=== PATIENT | male | born 1965 | race Hispanic/Latino ===

== ENCOUNTER 2017-10-04 13:25 | Outpatient (CLI) | payer OTHER | END 2017-10-04 13:26 | disposition home or self-care (01) | LOC: BICULT 13:25 | PROVIDERS: ATTEND Urology | DX: N39.0 Urinary tract infection, site not specified (principal); N28.1 Cyst of kidney, acquired | CPT/HCPCS: 76770 ==

== ENCOUNTER 2018-02-14 18:31 | Emergency (ER) | payer SELFPAY ==
--- NOTE | 2018-02-14 19:50 | RAD ---
RIGHT LOWER LEG TWO VIEWS: 02/14/18 HISTORY: Right leg injury. FINDINGS: Tibia and fibula are intact. Degenerative changes of the knee and ankle. Phleboliths within the soft tissues. No acute fracture or dislocation. IMPRESSION: No acute osseous abnormalities are demonstrated. POS: [facility]A
[2018-02-14] MEDS ORDERED: HYDROcodone/Acetaminophen 10/325 mg Tablet ONE (20:15)
[2018-02-14 20:29] LABS: #Basophils 0.1 thou/uL (0.0-0.2); #Eosinphils 0.2 thou/uL (0.0-0.7); #Lymphocytes 2.1 thou/uL (1.20-3.40); #Monocytes 0.5 thou/uL (0.11-0.59); #Neutrophils 4.4 thou/uL (1.40-6.50); %Basophils 1.1 % (0.0-1.0); %Eosinophils 2.5 % (0.0-10.0); %Lymphocytes 28.4 % (21.0-51.0); %Monocytes 7.3 % (0.0-10.0); %Neutrophils 60.7 % (42.0-75.0); Hemoglobin 14.9 g/dL (14.0-18.0); Mean Corpuscular HGB CONC 34.7 g/dL (32.0-36.0); Mean Corpuscular Hemoglobin 33.1 pg (27.0-31.0); Mean Corpuscular Volume 95.3 fL (78.0-98.0); Mean Platelet Volume 8.4 fL (7.4-10.4); Platelet Count 150 thou/uL (130-400); RBC Distribution Width 11.9 % (11.5-14.5); White Blood Cell (WBC) Count 7.3 thou/uL (4.8-10.8)
[2018-02-14 20:49] LABS: ALT (SGPT) 81 U/L (8-55); AST (SGOT) 70 U/L (5-34); Alkaline Phosphatase 140 U/L (40-150); Anion Gap 15 mmol/L (10-20); BUN (Urea Nitrogen) 12 mg/dL (8.4-25.7); Bilirubin, Total 1.2 mg/dL (0.2-1.2); Calc. Creatinine Clearance 0 mL/min (70-130); Calcium 9.6 mg/dL (7.8-10.44); Carbon Dioxide 21 mmol/L (22-29); Chloride 102 mmol/L (98-107); Estimated GFR-MDRD Greater than 90; Globulin 4.1 g/dL (2.4-3.5); Glucose 356 mg/dL (70-105); Magnesium 2.1 mg/dL (1.6-2.6); Potassium 3.9 mmol/L (3.5-5.1); Protein, Total 8.1 g/dL (6.0-8.3); Sodium 134 mmol/L (136-145)
--- NOTE | 2018-02-14 20:58 | ULT ---
VENOUS DUPLEX SONOGRAM RIGHT LOWER EXTREMITY 02/14/18 HISTORY: Right leg pain and edema. FINDINGS: The right common femoral vein and greater saphenous junction were evaluated along with the femoral, d eep femoral, popliteal, and posterior tibial veins. There is good color and spectral doppler flow, co mpression, and augmentation. In region of swelling, a subcutaneous lobular fluid collection measures up to 8.0 cm length x 2.5 cm depth. IMPRESSION: No sonographic evidence of DVT right lower extremity. Fluid collection in the region of injury likely represents a subcutaneous hematoma. POS: RULA
[2018-02-14 21:28] LABS: Bilirubin Negative (Negative); Blood, Urine Negative (Negative); Clarity CLEAR (Clear); Glucose, Urine (Dipstick) >=1000 mg/dL (Negative); Leukocyte Negative (Negative); Nitrite Negative (Negative); Protein, Urine (Dipstick) Negative (Neg-Trace); Specific Gravity, Urine 1.033 (1.002-1.036); pH, Urine 6.5 (5.0-9.0)
== END 2018-02-14 22:50 | disposition home or self-care (01) ==
LOC: ERS 18:31
DX: S80.11XA Contusion of right lower leg, initial encounter (principal); L03.115 Cellulitis of right lower limb; I10 Essential (primary) hypertension; Z79.84 Long term (current) use of oral hypoglycemic drugs; Z79.899 Other long term (current) drug therapy; W17.89XA Other fall from one level to another, initial encounter
CPT/HCPCS: 36415; 80053; 81003; 83735; 85025; 85379

== ENCOUNTER 2023-06-25 16:02 | Emergency (ER) | payer SELFPAY ==
[2023-06-25] MEDS ORDERED: Rocuronium Bromide 10 MG/ML (10ML VIAL) ONE (16:16)
[2023-06-25] MEDS ORDERED: NOREPINEPHRINE 8 MG/250 ML-D5W 250 ML ONE (16:22)
[2023-06-25] MEDS ORDERED: Vasopressin 20 UNITS/ML VIAL ONE ×2 (16:22→16:24)
[2023-06-25] MEDS ORDERED: methylPREDNISolone Sod Succ/PF 125 MG/2 ML VIAL ONE (16:32)
[2023-06-25 16:45] LABS: Hematocrit 21.2 % (42.0-52.0); Hemoglobin 6.1 g/dL (14.0-18.0); Manual Diff?? YES; Mean Corpuscular HGB CONC 28.8 g/dL (32.0-36.0); Mean Corpuscular Volume 114.6 fl (78.0-98.0); Mean Platelet Volume 12.7 fL (7.4-10.4); RBC Distribution Width 19.3 % (11.5-14.5); Red Blood Cell (RBC) Count 1.85 mill/uL (4.70-6.10); White Blood Cell (WBC) Count 6.5 10x3/uL (4.8-10.8)
[2023-06-25 16:47] LABS: Delete Auto Diff?? YES; Platelet Count 32 10x3/uL (130-400)
[2023-06-25 16:49] LABS: Analyzer IN Cardio ER; Base Excess -23.2 mEq/L (-2.0 to +3.0); Calcium, Ionized (venous) 0.93 mmol/L (1.16-1.32); Chloride (VBG) 99 mmol/L (98-106); Hematocrit-VBG 21 % (42.0-52.0); Hemoglobin (Hb) 7.3 g/dL (13.1-17.2); Sodium 146 mmol/L (133-146)
[2023-06-25 17:00] LABS: pH (venous) 6.782 (7.32-7.43)
[2023-06-25 17:01] LABS: Actual Bicarbonate (HCO3v) 10.1 mEq/L (22-28)
[2023-06-25 17:12] LABS: ALT (SGPT) 56 U/L (8-55); AST (SGOT) 225 U/L (5-34); Acetaminophen Less than 10 mcg/mL (10.0-30.0); Albumin 1.5 g/dL (3.5-5.0); Alcohol 184.2 mg/dL (Less than 10); Alkaline Phosphatase 225 U/L (40-110); Anion Gap 44 mmol/L (10-20); BUN (Urea Nitrogen) 8 mg/dL (8.4-25.7); Bilirubin, Total 5.8 mg/dL (0.2-1.2); Calc. Creatinine Clearance 0 mL/min (70-130); Calcium 8.3 mg/dL (7.8-10.44); Carbon Dioxide 10 mmol/L (22-29); Chloride 100 mmol/L (98-107); Estimated GFR 54; Globulin 3.9 g/dL (2.4-3.5); Glucose 107 mg/dL (70-105); Potassium 5.1 mmol/L (3.5-5.1); Protein, Total 5.4 g/dL (6.0-8.3); Salicylate Less than 8.0 mg/dL (15.0-30.0); Sodium 149 mmol/L (136-145)
[2023-06-25 17:15] LABS: Anisocytosis SLIGHT = 6-15 cells HPF (0-5); Band 7 % (5-11); Burr Cells SLIGHT = 2-5 cells HPF (0-1); CellaVision Operator ID LAB.KB; Hypochromia SLIGHT = 6-15 cells HPF (0-5); Large Platelets 15.2 % (0-5); Lymphocytes 17 % (21-51); Macrocytosis SLIGHT = 6-15 cells HPF (0-5); Monocytes 5 % (0-10); Myelocyte 3 % (0-0); Neutrophil 67 % (42-75); Nucleated RBC (Manual Ct) 11 % (0); Ovalocytes SLIGHT = 2-5 cells HPF (0-1); Platelet Adequacy Comment Significant decrease; Poikilocytosis SLIGHT = 6-15 cells HPF (0-5); Polychromasia SLIGHT = 2-3 cells HPF (0-2); Smudge Cells 42.4 %; Total Cell Count 99
[2023-06-25 17:32] LABS: Troponin I 0.024 ng/mL (< 0.028)
[2023-06-25 17:38] LABS: Critical Call Chem-Lactate ERS.DEC @1738
== END 2023-06-25 16:35 | disposition expired ==
LOC: ERS 16:02
DX: I46.9 Cardiac arrest, cause unspecified (principal); K92.2 Gastrointestinal hemorrhage, unspecified; I10 Essential (primary) hypertension; E11.9 Type 2 diabetes mellitus without complications; Z55.6 Problems related to health literacy
CPT/HCPCS: 31500; 36416; 36430; 36556; 80053; 80307; 82805; 83605; 84484; 85025; 86850; 86900; 86901; 92950; J2930; P9016